=== PATIENT | male | born 1955 | race Caucasian/White ===

== ENCOUNTER 2016-10-20 11:22 | Day surgery (SDC) | payer OTHER ==
[~2016-10-20] VITALS: Ht 185.4 cm; Wt 77.7 kg
[~2016-10-20 11:22] MED LIST: IBUP800T23 PO; ROBA750T3 PO
[2016-10-20 12:04] VITALS: BP 139/95; PULSE 84; RESP 18; TEMP 97.6; O2SAT 97
[2016-10-20] MEDS ORDERED: LIPI80TA PO (12:04)
[2016-10-20] MEDS ORDERED: SPIR25TA PO (12:04)
[2016-10-20] MEDS ORDERED: CARV3.125 PO (12:04)
[2016-10-20] MEDS ORDERED: PLAV75TA29 PO (12:04)
[2016-10-20] MEDS ORDERED: LISI2.5T3 PO (12:04)
[2016-10-20] MEDS ORDERED: SODIUM CHLORIDE 0.9% FLUSH 10 ML FLUSH IV FLUSH PRN ×2 (12:15)
[2016-10-20 12:22] LABS: AUTOMATED NEUTROPHIL # 5.3 TH/MM3 (1.8-7.7); BASOPHIL # 0.1 TH/MM3 (0-0.2); BASOPHIL % 0.8 % (0.0-2.0); EOSINOPHIL # 0.4 TH/MM3 (0-0.4); HEMATOCRIT 44.6 % (39.0-51.0); HEMO FLAGS DIFF FINAL; LYMPH % 28.5 % (9.0-44.0); LYMPHOCYTE # 2.6 TH/MM3 (1.0-4.8); MEAN CELL VOLUME 101.9 FL (80.0-100.0); MEAN CORPUSCULAR HEMOGLOBIN 36.3 PG (27.0-34.0); MEAN CORPUSCULAR HGB CONC 35.6 % (32.0-36.0); MONO % 9.1 % (0.0-8.0); NEUT % 57.6 % (16.0-70.0); PLATELET COUNT 113 TH/MM3 (150-450); RED BLOOD COUNT 4.38 MIL/MM3 (4.50-5.90); RED CELL DISTRIBUTION WIDTH 14.6 % (11.6-17.2); WHITE BLOOD COUNT 9.2 TH/MM3 (4.0-11.0)
[2016-10-20 12:29] LABS: INTERNATIONAL NORMALIZED RATIO 1.1 RATIO
[2016-10-20 12:47] LABS: BICARBONATE 25.6 MEQ/L (21.0-32.0)
[2016-10-20] MEDS ORDERED: HEPARIN SODIUM - IV 10,000 UNITS/10 ML VIAL ONE (13:36)
[2016-10-20] MEDS ORDERED: MIDAZOLAM HCL 5 MG/ML VIAL (1 ML) ONE (13:37)
[2016-10-20] MEDS ORDERED: IOHEXOL 300 MG/ML 100 ML BTL (for Rad CT) OTHER ONE (13:55)
[2016-10-20] MEDS ORDERED: SODIUM CHLOR 0.9% 1000 ML INJ 500 ML IV ONE (14:45)
--- NOTE | 2016-10-22 14:39 | MA ---
cc: ARNULFO DOAN M.D. DATE: 10/20/2016 INDICATION A 61-year-old with severe cramps in the lower extremities and claudication with ultrasound consistent with severe peripheral vascular disease bilaterally. PROCEDURE Abdominal angiogram with distal runoff. DETAILS OF PROCEDURE After obtaining informed consent the patient in a fasting state was brought to the laundry laborer. The left groin area was sterilized and draped with sterile drapes. 1% Xylocaine was used to anesthetize the area. A 5-[place] sheath was used to access the left femoral artery. Pigtail, 5-[place] low abdominal aorta, angiogram with distal runoff was performed. At the end of the procedure the sheath was taken out and closure with Vascade done successfully. The patient was sent back to his room in stable condition. There were no complications. RESULTS The low abdominal aorta has no significant disease. On the right side the right common iliac has mild diffuse disease and becomes completely occluded internal iliac and a very long segment recanalized by collaterals very short. In the femoral becomes completely occluded again then recanalized at the knee at the popliteal. The proximal portion below the knee has three-vessel runoff. Just below that there is questionable disease of the right anterior tibial. The posterior tibial and the peroneal are traced all the way to the ankle. On the left side the left common iliac, common femoral have mild diffuse disease. 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 CONCLUSIONS Contemplation for surgical approach will be discussed with the patient in detail. He was sent back to his room in stable condition. No complications. MD DESEAN Bustillos/ISAC /2:37 PM /2:14 PM
== END 2016-10-20 17:45 | disposition home or self-care (01) ==
LOC: HCAT 11:22 → HDIC 11:23 → HCAT 17:45
PROVIDERS: ATTEND Internal Medicine Cardiovascular Disease
DX: I73.9 Peripheral vascular disease, unspecified (principal); I25.10 Atherosclerotic heart disease of native coronary artery without angina pectoris; I10 Essential (primary) hypertension; E78.5 Hyperlipidemia, unspecified; I42.9 Cardiomyopathy, unspecified; Z79.899 Other long term (current) drug therapy; Z79.82 Long term (current) use of aspirin
CPT/HCPCS: 36200; 75630; 80048; 85025; 85610; C1760; G0269; J1644; J2250; J3010; Q9967; 75625; 75716